=== PATIENT | male | born 1970 | race Caucasian/White ===

== ENCOUNTER 2021-12-31 03:46 | Outpatient (CLI) | payer MEDICAID, SELFPAY ==
[2021-12-31 07:52] LABS: Abs Immature Grans 0.01 10^3/uL (0.0-0.06); Absolute Basophil Count 0.02 10^3/uL (0.0-0.2); Absolute Eosinophil Count 0.18 10^3/uL (0.0-0.7); Absolute Lymphocyte Count 1.82 10^3/uL (1.2-3.4); Absolute Monocyte Count 0.43 10^3/uL (0.1-0.8); Absolute Neutrophil Count 2.05 10^3/uL (1.2-6.7); Basophils % 0.4; HCT 42.4 % (40.0-50.0); HGB 14.2 g/dL (13.5-17.5); Immature Grans % 0.2; Lymphocytes % 40.4; MCH 30.1 pg (27.0-33.0); MCHC 33.5 % (32.0-36.0); MCV 89.8 fL (80-95); MPV 10.1 fL (8.0-11.0); Monocytes % 9.5; Neutrophils % 45.5; Nucleated RBC 0 %; Platelet Count 241 10^3/uL (130-400); RBC 4.72 10^6/uL (4.36-5.78); RDW 12.4 % (11.8-14.1); RDW-SD 41.4 fL; WBC 4.51 10^3/uL (4.4-10.8)
[2021-12-31 08:51] LABS: Iron 129 ug/dL (65-175); Total Iron Binding Capacity 330 ug/dL (250-450); Transferrin Sat 39 % (20-55)
[2021-12-31 16:38] LABS: ALT 34 U/L (16-63); AST 17 U/L (15-37); Albumin 4.3 g/dL (3.4-5.0); Alkaline Phosphatase 41 U/L (46-116); BUN 20 mg/dL (7-18); Bilirubin, Total 0.6 mg/dL (0.2-1.0); CREATININE 0.9 mg/dL (0.70-1.30); Calculated LDL 146 mg/dL (<100); Chloride 103 mmol/L (98-107); Cholesterol 226 mg/dL (<200); Ferritin 61 ng/mL (26-388); Folate 9.3 ng/mL (8.6-20.0); Glucose 105 mg/dL (74-106); HDL Cholesterol 47 mg/dL (40-60); Potassium 4.4 mmol/L (3.5-5.1); Sodium 140 mmol/L (136-145); TSH 1.34 uIU/mL (0.36-3.74); Total Protein 7.1 g/dL (6.4-8.2); Triglyceride 169 mg/dL (<150); Vitamin B12 358 pg/mL (193-986)
[2021-12-31 17:30] LABS: T3,Free 4.3 pg/mL (2.8-5.3)
[2021-12-31 17:33] LABS: FREE T4 0.76 ng/dL (0.76-1.46)
[2021-12-31 17:35] LABS: CRP, High Sensitivity <0.34 mg/L (See Note)
[2022-01-01 04:52] LABS: Vitamin D 25 Total 34.3 ng/mL (30-100)
[2022-01-01 11:02] LABS: IgA 289 mg/dL (85-499); IgG 695 mg/dL (610-1,616); IgM 60 mg/dL (35-242)
[2022-01-01 15:49] LABS: Lipoprotein (a) 44 nmol/L (<75)
[2022-01-02 08:58] LABS: Homocysteine 11.8 umol/L (5.0-13.9)
[2022-01-02 09:48] LABS: DHEA Sulfate 163 ug/dL (136-448)
[2022-01-06 19:29] LABS: Histamine Plasma 0.24 ng/mL (0-1.0)
[2022-01-12 09:57] LABS: Testosterone, Free 14.5 ng/dL (4.06-15.6); Testosterone, Total 467 ng/dL (240-950)
== END 2021-12-31 03:47 | disposition home or self-care (01) ==
LOC: LBO 03:47
PROVIDERS: Visit Provider Naturopath
DX: R53.83 Other fatigue (principal); E55.9 Vitamin D deficiency, unspecified; L30.9 Dermatitis, unspecified; Z13.220 Encounter for screening for lipoid disorders
CPT/HCPCS: 36415; 80053; 80061; 82306; 82627; 82784; 83090; 83695; 84402; 84403; 86141; 82607; 82728; 82746; 83036; 83088; 83540; 83550; 84439; 84443; 84481; 85025

== ENCOUNTER 2023-08-13 02:05 | Outpatient (CLI) | payer MEDICAID, SELFPAY ==
[2023-08-13 12:17] LABS: ALT 47 U/L (16-63); AST 30 U/L (15-37); Albumin 4.2 g/dL (3.4-5.0); Alkaline Phosphatase 44 U/L (46-116); Anion Gap 9.1 mmol/L (3-11); BUN 16 mg/dL (7-18); Bilirubin, Total 0.6 mg/dL (0.2-1.0); CO2 25.9 mmol/L (21.0-32.0); Calcium 9.6 mg/dL (8.5-10.1); Calculated LDL 147 mg/dL (<100); Chloride 104 mmol/L (98-107); Cholesterol 229 mg/dL (<200); Estimated GFR 90.56 (mL/min/1.73m2); Glucose 104 mg/dL (74-106); HDL Cholesterol 54 mg/dL (40-60); Potassium 3.9 mmol/L (3.5-5.1); Sodium 139 mmol/L (136-145); Total Protein 7.7 g/dL (6.4-8.2); Triglyceride 144 mg/dL (<150)
[2023-08-13 12:18] LABS: Hemoglobin A1C 5.9 % (<5.7)
== END 2023-08-13 02:06 | disposition home or self-care (01) ==
PROVIDERS: Visit Provider Naturopath
DX: Z00.00 Encounter for general adult medical examination without abnormal findings (principal)
CPT/HCPCS: 36415; 80053; 80061; 83036

== ENCOUNTER 2023-12-28 10:02 | Day surgery (SDC) | payer MEDICAID, SELFPAY ==
[2023-12-28 10:20] VITALS: BP 127/81; PULSE 66; RESP 16; TEMP 36.1; O2SAT 99
--- NOTE | 2023-12-28 10:27 | W.COLOREPORT ---
Date of service: 12/28/23 Time of Service: 10:27 Colonoscopy Report Procedure Description: PROCEDURES PERFORMED: 1. Colonoscopy PREOPERATIVE DIAGNOSIS: screening colonoscopy POSTOPERATIVE DIAGNOSIS: SURGEON: Ragini Samaniego MD INDICATION FOR PROCEDURE: The patient is a 53-year-old man who has never had a colonoscopy before. He has no symptoms. No family history of colon cancer. Due for screening. FINDINGS: No colon polyps. No obvious diverticular disease. Mild internal hemorrhoids. SURVEILLANCE interval/FOLLOW-UP: 10 years SPECIMENS: None EBL: Minimal COMPLICATIONS: None QUALITY of prep: Excellent Procedure in detail: The patient gave written consent and was in agreement with the indications, the potential risks as well as the benefits of the procedure. They were taken to the endoscopy suite and laid in the left lateral decubitus position. A timeout was performed and anesthesia was administered which was tolerated well. I started the procedure. Digital rectal and visual examination was performed and grossly within normal limits. A well-lubricated flexible colonoscope was then introduced and passed without any notable difficulty all the way to the cecum identified by the ileocecal valve and the appendiceal orifice. The scope was then slowly withdrawn with the above-noted findings. The patient tolerated the procedure well and was taken to the PACU in hemodynamically stable condition.
--- NOTE | 2023-12-28 10:28 | W.PM.DSUDISC ---
Date of service: 12/28/23 Time of Service: 10:28 Discharge Plan Disposition Patient Disposition: Home Condition: Good Discharge Details Attending Provider: Jony Samaniego Primary Care Provider: TORRES ROY Home Meds and New Rx's Prescriptions: No Action dextroamphetamine-amphetamine [Adderall] 10 mg tablet 10 mg PO BID Rx Instructions: administer doses at least 4-6 hours apart bisacodyl [Dulcolax (bisacodyl)] 5 mg tablet,delayed release (DR/EC) 5 mg PO ONCE Qty: 4 0RF Rx Instructions: Take per colonoscopy instructions provided by ordering providers office polyethylene glycol 3350 17 gram/dose powder 17 g PO ONCE Qty: 238 0RF Rx Instructions: Take per colonoscopy instructions provided by ordering providers office Sutab 1.479-0.188- 0.225 gram tablet See Rx Instructions PO PER PKG DIR Qty: 1 0RF Rx Instructions: PO PER PKG DIR Discharge Instructions Additional Instructions: FINDINGS: Your colon is healthy and normal in appearance. No polyps were found. No cancer. You do have some mild hemorrhoid disease which is extremely common, benign and nothing needs to be done about it. Stand Alone Forms: Colonoscopy Post Instructions Activity:: Activity as Tolerated Diet:: As Tolerated
[2023-12-28] MEDS: Lactated Ringers 1,000 ML 80 ML IV (10:50)
--- NOTE | 2023-12-28 11:09 | ANES.PREOP_ITS ---
General Info Date of Service Date Performed: 12/28/23 Height: 5 ft 7 in Weight: 81.4 kg Body Mass Index (BMI): 28.0 Surgical Procedure: Operation Date: 12/28/23 12:05 Proposed Procedure Side Surgeon p Colonoscopy Jony Samaniego MD Actual Procedure Side Surgeon p Colonoscopy Not Applicable Jony Samaniego MD Meds Allergies and Home Medications Allergies Allergy/AdvReac Type Severity Reaction Status Date / Time No Known Allergies Allergy Verified 12/28/23 10:32 Home Medication Medication Instructions Recorded bisacodyl 5 mg tablet,delayed 5 mg PO ONCE #4 tabs 12/16/23 release (Dulcolax (bisacodyl)) dextroamphetamine-amphetamine 10 10 mg PO BID 12/16/23 mg tablet (Adderall) polyethylene glycol 3350 17 17 g PO ONCE #238 grams 12/16/23 gram/dose oral powder sodium sul 1.479 gram-potas ch See Rx Instructions PO PER PKG DIR 12/24/23 0.188 gram-magnes sul 0.225 gram #1 unit tablet (Sutab) Current Visit Medications: Current Medications Generic Name Dose Route Start Last Admin Trade Name Freq PRN Reason Stop Dose Admin Ringer's Solution 1,000 mls @ 80 mls/hr 12/28/23 06:00 12/28/23 10:50 IV 01/26/24 23:59 80 mls/hr INFUSION DRAGAN Administration IV Miscellaneous Supplies 1 each 12/28/23 06:00 Iv Access IV 01/26/24 23:59 DIRECTED DRAGAN Sodium Chloride 0 ml 12/28/23 06:00 Normal Saline Flush 10 Ml Syr IV 01/26/24 23:59 PRN PRN Sodium Chloride 0 ml 12/28/23 06:00 Normal Saline 10 Ml Vial IJ 01/26/24 23:59 DIRECTED PRN Sterile Water 0 ml 12/28/23 06:00 Water,Injection,Sterile 10 Ml Vial IJ 01/26/24 23:59 DIRECTED PRN [facility] Medical History Medical History (Updated 12/23/23 @ 15:24 by Roman Hollis) ADD (attention deficit disorder) Medical History Comments:: 12/28/23: pt reports he drank a 10oz cup of herbal tea at 9:30am (no milk, no sugar). Surgical History Surgical History (Updated 12/23/23 @ 15:24 by Roman Hollis) Hx of appendectomy Tobacco Smoking/Tobacco Use Status: Never Alcohol Alcohol Intake: current Alcohol intake frequency: a few times a week Substance Use Substance use type: does not use Vital Signs and Lab Results Vital Signs Most Recent Vital Signs in EMR: Most Recent Vital Signs Temp Pulse Resp BP Pulse Ox 36.1 C L 66 16 127/81 99 12/28/23 10:20 12/28/23 10:20 12/28/23 10:20 12/28/23 10:20 12/28/23 10:20 Lab Results Blood Type / Crossmatch: No Data to Display Complete Blood Count: No Data to Display Complete Metabolic Panel: No Data to Display Liver Function Panel: No Data to Display Coagulation Panel: No Data to Display Cardiac Panel: No Data to Display Arterial Blood Gas: No Data to Display Venous Blood Gas: No Data to Display Pancreas Panel: No Data to Display Thyroid Panel: No Data to Display Infectious Disease: No Data to Display Blood Cultures: No Data to Display Toxicology Panel: No Data to Display Anesthesia Assessment and Plan Anesthesia History Personal History: No History of Anesthesia Complications Family History: No Family History of Anesthesia Complications Exercise Tolerance Exercise Tolerance: Metabolic Equivalents>4 Pertinent Negatives Pertinent Negatives: No Symptoms of GERD, No Major Cardiovascular Symptoms or Complaints and No Major Pulmonary Symptoms or Complaints Cardiac & Pulmonary Exam Cardiac Exam: Normal S1/S2 Heart Sounds Pulmonary Exam: Clear Bilateral Breath Sounds Implantable Cardiac Device Does patient have a Pacemaker or an ICD?: No Airway Exam Known Difficult Airway: No Mallampati Class: 2 Mouth Opening: Normal (> 3cm) Thyromental Distance: Greater than 3 cm Facial Hair: Full Parker Neck Range of Motion: Full ROM Neck Circumference: Normal Teeth Condition: Normal Dentition ASA Classification ASA Score: ASA 2 Emergency Case?: No NPO Status NPO Status: NPO Clears >2 hours, Solids >8 hours Anesthesia Plan Resuscitation Status: Full Code Anesthesia Technique: General Anesthesia Airway Planned: Natural Airway Monitors Used: Standard Monitors
[2023-12-28 11:10] VITALS: BMI 28.0
[2023-12-28 11:41] VITALS: BP 117/76; PULSE 61; RESP 16; TEMP 36.6; O2SAT 99
--- NOTE | 2023-12-28 11:46 | W.ANESPOSTOP ---
Postoperative Evaluation Date, Time and Location Date Performed: 12/28/23 Time Performed: 11:45 Patient Location: Day Surgery Unit Vital Signs Most Recent Imported Vital Signs: Most Recent Vital Signs Temp Pulse Resp BP Pulse Ox 36.6 C 61 16 117/76 99 12/28/23 11:41 12/28/23 11:41 12/28/23 11:41 12/28/23 11:41 12/28/23 11:41 Pain Score Most Recent Pain Score: Most Recent Pain Score Pain Level 0 12/28/23 11:41 Assessment Mental Status: Awake (Alert & Oriented to Patient Baseline) Airway and Respiratory Function: Patent airway with normal (patient baseline) respiratory exam Cardiovascular Function: Hemodynamically Stable Hydration Status: Adequately Hydrated Nausea & Vomiting: No Nausea or Vomiting Pain: Pt. Denies Any Pain Peripheral Nerve Block: Patient did not receive a nerve block
[2023-12-28 12:08] VITALS: BP 124/76; PULSE 65; RESP 16; TEMP 36.6; O2SAT 98
== END 2023-12-28 12:20 | disposition home or self-care (01) ==
PROVIDERS: PCP Naturopath; Visit Provider Student in an Organized Health Care Education/Training Program
PROC: 0DJD8ZZ Inspection of Lower Intestinal Tract, Via Natural or Artificial Opening Endoscopic (ICD-10-PCS; CPT 45378; principal; 2023-12-28 12:00)
DX: Z12.11 Encounter for screening for malignant neoplasm of colon (principal)
CPT/HCPCS: 45378; 00123; J2001; J2704

== ENCOUNTER 2025-03-28 10:36 | Outpatient (CLI) | payer MEDICAID, SELFPAY ==
[2025-03-28 10:53] LABS: HCT 40.9 % (40.0-50.0); HGB 14.2 g/dL (13.5-17.5); MCH 30.8 pg (27.0-33.0); MCHC 34.7 % (32.0-36.0); MCV 89 fL (80-95); MPV 9.9 fL (8.0-11.0); Platelet Count 241 10^3/uL (130-400); RBC 4.61 10^6/uL (4.36-5.78); RDW 12.6 % (11.8-14.1); RDW-SD 41.1 fL; WBC 4.84 10^3/uL (4.4-10.8)
[2025-03-28 11:47] LABS: Hemoglobin A1C 5.8 % (<5.7)
[2025-03-28 11:51] LABS: ALT 41 U/L (16-63); AST 24 U/L (15-37); Alkaline Phosphatase 42 U/L (46-116); BUN 15 mg/dL (7-18); Bilirubin, Total 0.6 mg/dL (0.2-1.0); Calcium 8.9 mg/dL (8.5-10.1); Chloride 102 mmol/L (98-107); Estimated GFR 89.44 (mL/min/1.73m2); Ferritin 45 ng/mL (26-388); Glucose 102 mg/dL (74-106); Potassium 3.8 mmol/L (3.5-5.1); Sodium 138 mmol/L (136-145); Total Protein 7.2 g/dL (6.4-8.2); Vitamin D 25 Total 42 ng/mL (30-100)
[2025-04-13 14:24] LABS: Testosterone, Free 12.3 ng/dL (4.06-15.6); Testosterone, Total 483 ng/dL (240-950)
== END 2025-03-28 10:37 | disposition home or self-care (01) ==
LOC: LBO 10:36
PROVIDERS: PCP Naturopath; Visit Provider Naturopath
DX: R53.83 Other fatigue (principal)
CPT/HCPCS: 36415; 80053; 82306; 84402; 84403; 85027; 82728; 83036